=== PATIENT | female | born 1965 | race African-American/Black ===

== ENCOUNTER → 2017-01-26 | Outpatient (CLI) | payer OTHER ==
[~2017-01-26] MED LIST: FLEXERIL10 MG PO; KETOPROFEN PO; MEDROL DOSEPAK4 MG PO; NORFLEX100 MG PO; PREDNISONE10 MG PO; PRILOSEC PO; PROVENTAL; ULTRAM PO; VICODIN 5/1 TAB 5/50 PO; VOLTAREN75 MG PO; ZITHROMAX PO
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
== END | disposition home or self-care (01) ==
LOC: CMRI 12:32
DX: M25.512 Pain in left shoulder (principal); R53.1 Weakness; M19.011 Primary osteoarthritis, right shoulder
CPT/HCPCS: 73221

== ENCOUNTER 2017-03-09 23:33 | Emergency (ER) | payer OTHER ==
--- NOTE | ~2017-03-09 | CT71 ---
[facility] A Service [facility] RADIOLOGY TEXT RESULTS PATIENT: AI STEPHENSON LOCATION: [facility] : 67 UNIT #: [id number] AGE: [address]: Carlos Eduardo Valle DO SEX: F ORDER DR: [id number] [facility] [address] [place], [place] [address] [id number] E MR#: [id number] Acc #: [id number] NAME: AI STEPHENSON. : 1965 SEX: F STUDY DATE/TIME: 03/10/2017 2:51 UNIT: [facility] ROOM: STUDY DESCRIPTION: CT Head Wo Contrast Attending Physician: Carlos Eduardo Valle D.O. Ordering Physician: Carlos Eduardo Valle D.O. Primary Care Physician: [facility] MEDICAL IMAGING REPORT This report is preliminary unless electronic signature is present EXAM CT head INDICATION Headache for 1 day. Blurry vision. TECHNIQUE [address] of the head without contrast. This CT examination was performed with one or more of the following radiation dose reduction techniques: automatic exposure control, adjustment of mA and/or kV according to patient size, and iterative reconstruction. COMPARISON CT head 04/17/2016. FINDINGS Axial noncontrast images were obtained from the skull base to the vertex. Ventricular size and configuration are normal. There is no evidence of acute infarct or hemorrhage. There are no extra-axial fluid collections. No mass lesion or mass effect is seen. There are no skull fractures. IMPRESSION Normal noncontrast head CT. Dictated by... Sebastián Raman M.D. THIS IS AN ELECTRONICALLY VERIFIED REPORT Sebastián Raman M.D. at 03/13/2017 4:15 PM [facility] A Service [facility] RADIOLOGY TEXT RESULTS PATIENT: AI STEPHENSON LOCATION: [facility] : 67 UNIT #: [id number] AGE: [address]: Hottman,Carlos Eduardo M DO SEX: F ORDER DR: Jacob TD: 03/10/2017 08:44 JOB #: [id number] MEDICAL IMAGING REPORT Page 1 of 1 COPY
--- NOTE | ~2017-03-09 | CR58 ---
[facility] A Service of [facility] RADIOLOGY TEXT RESULTS PATIENT: AI STEPHENSON LOCATION: [facility] : 67 UNIT #: [id number] AGE: [address]: Carlos Eduardo Valle DO SEX: F ORDER DR: [id number] [facility] [address] [place], [place] [address] [id number] E MR#: [id number] Acc #: [id number] NAME: AI STEPHENSON : 1965 SEX: F STUDY DATE/TIME: 03/10/2017 2:09 UNIT: [facility] ROOM: STUDY DESCRIPTION: CR Cervical Spine 2 or 3 Views Attending Physician: Carlos Eduardo Valle D.O. Ordering Physician: Carlos Eduardo Valle D.O. Primary Care Physician: [facility] MEDICAL IMAGING REPORT This report is preliminary unless electronic signature is present EXAM Cervical spine radiograph INDICATION Right-sided neck pain radiating down the right arm for 2 weeks. FINDINGS Four views of the cervical spine without comparison. There is no acute fracture or subluxation. Vertebral body height is normal. Patient does have some reversal of the normal cervical lordosis. Prevertebral soft tissues are normal. IMPRESSION Slight reversal of the normal cervical lordosis No acute traumatic findings. Dictated by... Sebastián Raman M.D. THIS IS AN ELECTRONICALLY VERIFIED REPORT Sebastián Raman M.D. at 03/13/2017 2:14 PM HORACIO/michelle TD: 03/10/2017 08:14 JOB #: [id number] MEDICAL IMAGING REPORT Page 1 of 1 COPY
[2017-03-10 02:52] LABS: URINE SOURCE CLEAN CATCH
[2017-03-10 02:53] LABS: BASOPHIL% 0.5 % (0-2.5); EOSINOPHIL# 0.1 X10e3 (0-0.7); HEMOGLOBIN 12.8 gm/dL (12.0-16.0); LYMPHOCYTE# 3.6 X10e3 (1.0-3.5); LYMPHOCYTE% 49.7 % (17.0-45.0); MEAN CELL VOLUME 80.4 FL (83-96); MEAN CORPUSCULAR HEMOGLOBIN 25.6 PG (28-34); MEAN CORPUSCULAR HGB CONC 31.9 g/dL (30-36); MEAN PLATELET VOLUME 9.9 FL (6.5-11.5); MONOCYTE# 0.4 X10e3 (0-1.0); MONOCYTE% 5.1 % (3.0-12.0); NEUTROPHIL# 3.2 X10e3 (1.5-7.1); NEUTROPHIL% 43.7 % (40-75); PLATELET COUNT 214 X10e3 (140-420); RED BLOOD COUNT 4.98 X10e (3.90-5.30); RED CELL DISTRIBUTION WIDTH 14.7 % (11.0-15.5); WHITE BLOOD COUNT 7.3 X10e3 (4.0-10.5)
[2017-03-10 02:55] LABS: URINE APPEARANCE CLEAR; URINE BILIRUBIN NEG (NEG); URINE BLOOD NEG (NEG); URINE COLOR YELLOW; URINE GLUCOSE >1000 MG/DL (NEG); URINE KETONE NEG (NEG); URINE LEUKOCYTE ESTERASE NEG (NEG); URINE NITRATE NEG (NEG); URINE PH 5.5 (5-8); URINE PROTEIN NEG (NEG); URINE SPECIFIC GRAVITY 1.031 (1.003-1.035); URINE UROBILINOGEN 0.2 MG/DL (NEG)
[2017-03-10 03:08] LABS: PARTIAL THROMBOPLASTIN TIME 28.2 SECONDS (23.5-31.3); PROTHROMBIN TIME (PATIENT) 10.4 SECONDS (10.0-11.7)
[2017-03-10 03:16] LABS: DIFF IND NO
[2017-03-10 03:19] LABS: CULTURE INDICATED? NO
[2017-03-10 03:30] LABS: ALBUMIN SERUM 3.8 g/dL (3.5-5.0); BILIRUBIN,TOTAL 0.7 mg/dL (0.2-2.0); CALCIUM SERUM 9.4 mg/dL (8.4-10.2); CREATININE SERUM 0.5 mg/dL (0.6-1.4); GLOM FILT RATE Estimated 130.8 mL/min (>60); POTASSIUM 3.8 mmol/L (3.5-5.1); PROTEIN TOTAL SERUM 7.9 g/dL (6.0-8.3)
[2017-03-10 03:41] LABS: BILIRUBIN, DIRECT 0.1 mg/dL (0.0-0.2); BILIRUBIN,INDIRECT 0.6 mg/dL (0.0-0.9)
== END 2017-03-10 04:53 | disposition left against medical advice (07) ==
LOC: CED 23:33
PROVIDERS: Emergency Medicine
DX: R51 Headache (principal); M54.2 Cervicalgia; M25.511 Pain in right shoulder; E11.9 Type 2 diabetes mellitus without complications; J44.9 Chronic obstructive pulmonary disease, unspecified; K21.9 Gastro-esophageal reflux disease without esophagitis; Z98.890 Other specified postprocedural states; Z79.84 Long term (current) use of oral hypoglycemic drugs
CPT/HCPCS: 36415; 70450; 72040; 80048; 80076; 81003; 84703; 85025; 85610; 85730; 96361; 96374; 96375; 99284; J1200; J2765

== ENCOUNTER 2017-05-22 17:19 | Emergency (ER) | payer OTHER ==
[~2017-05-22] VITALS: Ht 162.6 cm; Wt 83.9 kg
== END 2017-05-22 18:31 | disposition home or self-care (01) ==
LOC: CFTX 17:19 → CED 17:19 → CFTX 18:05
DX: K02.9 Dental caries, unspecified (principal); I10 Essential (primary) hypertension; E11.9 Type 2 diabetes mellitus without complications
CPT/HCPCS: 99283